=== PATIENT | male | born 1945 | race Caucasian/White ===

== ENCOUNTER 2021-04-14 15:08 | Emergency (ER) | payer MEDICARE, SELFPAY ==
[~2021-04-14] VITALS: Ht 170.2 cm; Wt 75.4 kg
[2021-04-14 15:08] VITALS: BP 125/55
--- NOTE | 2021-04-14 15:08 | NUR ---
75 YO MALE BIBA FROM HOME WITH C/O SOB THAT STARTED AT 3AM, PATIENT WAS FOUND TRIPODDING BY MEDICS, SP02 @ 82% W/O O2. PT PLACED ON 15 L NR, SPO2 100%. PATIENT USES CPAP AT HOME @8L. PATIENTS LUNG SOUNDS CLEAR THROUGHOUT, NO SWELLING NOTED TO FARTUN EXT. +JVD, DENIES FEVER, CHILLS, N/V/D. SKIN DRY AND INTACT, NORMAL COLOR TO PATIENT. CAP REFILL <3. A&OX4, PLACED ON MONITOR. PMH: PACEMAKER, CHF, COPD, DM, 2 MD'S, LEFT LEG ABOVE THE KNEE AMPUTATION ALLERGIES: UNKNOWN
--- NOTE | 2021-04-14 15:08 | NUR ---
PT [facility] TO BED 2 VIA [facility]
[2021-04-14] MEDS ORDERED: IPRATROPIUM 0.02% 0.5 MG/2.5 ML NEBU INH ONE ×2 (15:20→17:50)
[2021-04-14] MEDS ORDERED: methylPREDNISolone SS 125 MG in WATER STERILE 2 ML IV ONE (15:20)
[2021-04-14] MEDS ORDERED: ALBUTEROL 0.083% 2.5 MG/3 ML NEBU INH ONE ×2 (15:20→17:50)
[2021-04-14] MEDS ORDERED: FUROSEMIDE 40 MG/4 ML VIAL IVP ONE (15:20)
[2021-04-14] MEDS ORDERED: WATER STERILE 10 ML MC ONE (16:20)
[2021-04-14] MEDS ORDERED: methylPREDNISolone SS 125 MG/2 ML VIAL ONE (16:20)
[2021-04-14 16:29] LABS: BASOPHILS # (AUTO) 0.1 K/uL (0.00-0.22); BASOPHILS % (AUTO) 1.3 % (0.0-2.0); EOSINOPHILS # (AUTO) 0.2 K/uL (0-0.4); HEMATOCRIT 27.8 % (36-52); HEMOGLOBIN 9.1 g/dL (12.0-18.0); LYMPHOCYTES # (AUTO) 0.4 K/uL (2.0-11.5); LYMPHOCYTES % (AUTO) 4.8 % (20.5-51.1); MEAN CORPUSCULAR HEMOGLOBIN 26 pg (27-31); MEAN CORPUSCULAR HGB CONC 33 g/dL (33-37); MEAN CORPUSCULAR VOLUME 80.3 fL (80-94); MONOCYTES # (AUTO) 0.7 K/uL (0.8-1.0); MONOCYTES % (AUTO) 8.9 % (1.7-9.3); NEUTROPHILS # (AUTO) 6.7 K/uL (1.8-7.7); PLATELET COUNT (AUTO) 258 K/uL (140-450); RED BLOOD CELL COUNT(AUTO) 3.47 MIL/uL (4.20-6.10); RED CELL DISTRIBUTION WIDTH 18.2 % (11.6-13.7); WHITE BLOOD COUNT (AUTO) 8.2 K/uL (4.8-10.8)
[2021-04-14 16:44] LABS: ALBUMIN 2.8 g/dL (3.4-5.0); ASPARTATE AMINOTRANSFERASE 29 U/L (15-37); CARBON DIOXIDE 26.5 mmol/L (21-32); CHLORIDE 104 mmol/L (98-107); CREATININE 2.7 mg/dL (0.6-1.3); GLUCOSE 118 mg/dL (74-106); SODIUM SERUM 138 mmol/L (136-145); TOTAL BILIRUBIN 0.8 mg/dL (0.0-1.0)
[2021-04-14 16:54] LABS: UREA NITROGEN, BLOOD 90 mg/dL (7-18)
--- NOTE | 2021-04-14 17:10 | NUR ---
CALL FROM CATHY/LADLE BUILDER IN REGARDS TO [facility] NO ORDERS RECEIVED IN RT DEPT UNABLE TO OBTAIN RESPIRATORY DRUGS FROM [facility] CELL REVIEWED WITH DR. JUSTYN HORTA TO REORDER
[2021-04-14 17:32] LABS: ANION GAP 13.4 (8-16); POTASSIUM 5.9 mmol/L (3.5-5.1)
--- NOTE | 2021-04-14 17:52 | NUR ---
PATIENT UNABLE TO PROVIDE URINE SAMPLE AT THIS TIME, MD BORJAS MADE AWARE.
[2021-04-14 18:15] LABS: APPEARANCE,URINE CLEAR (CLEAR); BILIRUBIN,URINE NEGATIVE (NEGATIVE); BLOOD, URINE NEGATIVE (NEGATIVE); COLOR,URINE YELLOW (YELLOW); LEUKOCYTE ESTERASE ,URINE NEGATIVE (NEGATIVE); NITRITE, URINE NEGATIVE (NEGATIVE); PH,URINE 5.5 (5.0-9.0); UGLUCOSE NEGATIVE (NEGATIVE)
--- NOTE | 2021-04-14 18:25 | NUR ---
RT AT BEDSIDE
--- NOTE | 2021-04-14 18:28 | NUR ---
RT AT BEDSIDE AT THIS TIME
[2021-04-14] MEDS ORDERED: ATOR40TA PO (18:58)
[2021-04-14] MEDS ORDERED: DABI150C PO (18:59)
[2021-04-14] MEDS ORDERED: FURO-570 PO (19:00)
[2021-04-14] MEDS ORDERED: OMEP20EC11 PO (19:00)
[2021-04-14] MEDS ORDERED: POTA99TA22 PO (19:02)
[2021-04-14] MEDS ORDERED: BISO5TAB23 PO (19:03)
[2021-04-14] MEDS ORDERED: ISOS20TA13 PO (19:04)
[2021-04-14] MEDS ORDERED: LISI5TAB18 PO (19:05)
[2021-04-14] MEDS ORDERED: HYDR-1098 PO (19:05)
--- NOTE | 2021-04-14 19:22 | NUR ---
REPORT RECEIVED FROM TAE MORGAN FOR CONTINUATION OF PATIENT CARE. AT THIS TIME.
--- NOTE | 2021-04-14 19:58 | NUR ---
PATIENT LAYING IN BED LOCKED IN LOWEST POSITION, X2 SIDERAILS UP FOR PATIENT SAFETY, HOB ELEVATED. PATIENT DENIES ANY PAIN, REPORTS SOME SOB. S1S2 PRESENT, SKIN WARM AND DRY, +JVD, LUNG SOUNDS CLEAR. CONNECTED TO MONITOR W VSS ON 2L NC O2 SAT 93-94%. WILL CONTINUE TO MONITOR.
--- NOTE | 2021-04-14 19:58 | NUR ---
Note arpitone in EDM - 04/14/21 at 2252 by MEDANTWANK PATIENT LAYING IN BED LOCKED IN LOWEST POSITION, X2 SIDERAILS UP FOR PATIENT SAFETY, HOB ELEVATED. PATIENT DENIES ANY PAIN, REPORTS SOME SOB. S1S2 PRESENT, SKIN WARM AND DRY, +JVD, LUNG SOUNDS CLEAR. CONNECTED TO MONITOR W VSS ON 15L NC. WILL CONTINUE TO MONITOR.
--- NOTE | 2021-04-14 20:10 | NUR ---
SON AT BEDSIDE W RULA, EXPLAINING DC INSTRUCTIONS.
--- NOTE | 2021-04-14 20:15 | NUR ---
PATIENT OFF OXYGEN, 02 SAT AT 91%.
[2021-04-14 20:24] VITALS: BP 106/41
--- NOTE | 2021-04-14 20:24 | NUR ---
Patient discharged with v/s stable. Written and verbal after care instructions given and explained. Patient verbalized understanding. Wheel Chair Assisted with to car. All questions addressed prior to discharge. Advised to follow up with PMD.
== END 2021-04-14 20:24 | disposition home or self-care (01) ==
LOC: EDBD 15:08 → MED 15:08
DX: E11.22 Type 2 diabetes mellitus with diabetic chronic kidney disease (principal); Z20.822 Contact with and (suspected) exposure to COVID-19; N18.9 Chronic kidney disease, unspecified; J44.9 Chronic obstructive pulmonary disease, unspecified; Z51.5 Encounter for palliative care; Z88.0 Allergy status to penicillin; Z95.0 Presence of cardiac pacemaker
CPT/HCPCS: 36415; 36600; 71045; 80053; 81003; 82803; 83605; 83880; 84484; 85025; 87040; 87426; 93005; 94640; 96374; 96375; 99291; J1940; J2930; J7644; Q0092